=== PATIENT | female | born 1935 | race Caucasian/White ===

== ENCOUNTER 2021-10-29 06:17 | Inpatient (IN) | payer OTHER ==
[~2021-10-29] VITALS: Ht 167.6 cm; Wt 136.4 kg
[~2021-10-29 06:17] MED LIST: EUTHYROX75 MC1 PO; HYDCHL25 PO; LEVSOD75 PO; METFORMIN HCL500 M2 PO; SPIRONOLACTONE25 MG PO
[2021-10-29 06:41] LABS: BASOPHILS ABSOLUTE AUTO 0.03 K/mm3 (0.00-0.23); BASOPHILS PERCENT AUTO 0 % (0-2); EOSINOPHILS ABSOLUTE AUTO 0.02 K/mm3 (0.00-0.68); EOSINOPHILS PERCENT AUTO 0 % (0-6); Hematocrit 42.7 % (33.0-51.0); Hemoglobin 14.1 g/dL (11.5-16.0); IMMATURE GRAN ABSOLUTE AUTO 0.02 K/mm3 (0.00-0.10); IMMATURE GRAN PERCENT AUTO 0 % (0-1); LYMPHOCYTES ABSOLUTE AUTO 1.81 K/mm3 (0.84-5.20); LYMPHOCYTES PERCENT AUTO 23 % (21-46); MONOCYTES ABSOLUTE AUTO 0.52 K/mm3 (0.16-1.47); MONOCYTES PERCENT AUTO 7 % (4-13); Mean Corpuscular HGB 30.1 pg (26.0-34.0); Mean Corpuscular Volume 91 fL (80-100); Mean Platelet Volume 9.7 fL (9.1-12.4); NEUTROPHILS ABSOLUTE AUTO 5.42 K/mm3 (1.96-9.15); NEUTROPHILS PERCENT AUTO 69 % (41-73); Platelet Count 362 K/mm3 (150-400); RDW Coefficient Variation 13.6 % (11.7-14.2); RDW Standard Deviation 45.4 fL (35.1-46.3); Red Blood Cell Count 4.68 M/mm3 (3.80-5.20); White Blood Cell Count 7.82 K/mm3 (4.00-11.30)
[2021-10-29 07:08] LABS: Alanine Aminotransfer (ALT/SGP 54 U/L (12-78); Albumin, Blood 3.5 g/dL (3.4-5.0); Albumin/Globulin Ratio 0.9 (0.8-1.8); Alk Phos 104 U/L (50-136); Anion Gap 10 mmol/L (6-16); Aspartate Aminotrans (AST/SGOT 27 U/L (12-37); Bilirubin, Total 0.7 mg/dL (0.1-1.0); Blood Urea Nitrogen 30 mg/dL (8-24); Bun/Creatinine Ratio 32.5 (12.0-20.0); CO2, Blood 25 mmol/L (21-32); Chloride, Blood 102 mmol/L (98-108); Creatinine, Blood 0.92 mg/dL (0.40-1.00); Glomerular Filtration Rate 58 (60-); Glucose, Blood 161 mg/dL (70-99); Magnesium, Blood 1.9 mg/dL (1.6-2.4); Potassium, Blood 3.9 mmol/L (3.5-5.5); Sodium, Blood 137 mmol/L (136-145); Total Protein, Blood 7.5 g/dL (6.4-8.2); Troponin I <0.015 ng/mL (0.000-0.040)
[2021-10-29] MEDS ORDERED: BENAZEPRIL HCL40 M1 PO (07:11)
[2021-10-29 07:18] LABS: International Normalized Ratio 1.04; Prothrombin Time Results 10.9 Sec (9.7-11.5)
[2021-10-29 08:07] LABS: Influenza A, PCR NEGATIVE (NEGATIVE); Influenza B, PCR NEGATIVE (NEGATIVE); Resp Syncytial Virus, PCR NEGATIVE (NEGATIVE); SARS-Cov-2 (COVID-19) PCR, MMC NEGATIVE (NEGATIVE)
--- NOTE | 2021-10-29 12:30 | NUR ---
CARE ASSUMPTION/ARRIVAL TO PCU PATIENT ARRIVED TO PCU FROM ED CRYSTAL BOYD AT 1150. PATIENT TRANSFERED WITH A 1 ASSIT TO PCU BED. VSS. TELE AFIB 115. CARDIZEM DRIP AT 15. A/OX4. NO PAIN, CHEST PAIN. SOB WITH EXERTION. PATIENT ORIENTATED TO THE ROOM AND CALL LIGHT. CALL LIGHT WITHIN REACH AND BED IN LOWEST POSITION. WILL CONTINUE TO MONITOR AND PROVIDE CARE.
--- NOTE | 2021-10-29 18:20 | NUR ---
SHIFT SUMMARY PATIENT IS A/OX4. VSS. CARDIZEM GTT AT 15MLS/HR UNTIL HEART RATE MAINTAINED LESS THAN 110. TELE AFIB 125. NO ACUTE CHANGES. CALL LIGHT WITHIN REACH AND BED IN LOWEST POSITION. WILL CONTINUE TO MONITOR AND PROVIDE CARE UNTIL HAND OFF WITH NEXT SHIFT.
--- NOTE | 2021-10-29 19:48 | NUR ---
ASSUMED CARE PT IS ALERT AND ORIENTED X4. VITAL ARE STABLE AN IS ON ROOM AIR. PT DENIES CHEST PAIN OR SOB. CALLED TELE MONTOR TO DIYA R/R AND SHE IS CURRENTLY IN AFIB AND LOWER 100'S BUT NOT SUSTAINING. CALL LIGHT IS WITHIN REACH. WILL CONTINUE TO MONITOR.
--- NOTE | 2021-10-29 22:02 | NUR ---
CALLED DR MARTINEZ TO GET ORDER FOR MICONAZOLE POWDER. ORDER GIVEN TID.
--- NOTE | 2021-10-30 01:53 | NUR ---
TURNE OFF CARDIZEM GTT PT SUSTAINING IN THE HIGH 90'S TO LOW 100'S.
--- NOTE | 2021-10-30 06:15 | NUR ---
SHIFT SUMMARY PT IS ALERT AND ORIENTED. BP, SPO2, ARE STABLE, ON ROOM AIR. PT DENIES CHEST PAIN OR SOB. CARDIZEM GTT WAS TURNED OFF AT APPROX 01:50 DUE TO SUSTAINING BELOW 100. I CALLED DR MCDONALD REGARDING A PO MEDICATION FOR THE HEART RATE. METROPOLOL 25MG BID WAS ORDERED. THIS MORNING THE HEART RATE INCREASED AND SUSTAINING, WAS MEDICATED PER EMAR. PT HAS BEEN ABLE TO USE BSC WITH SBA ASSIST. SHE REPORTED BACK PAIN AND WANTED TO SIT IN CHAIR AND HAS BEEN IN CHAIR FOR A COUPLE OF HOURS AND TOLERATING WELL. CALL LIGHT IS WITHIN REACH.
--- NOTE | 2021-10-30 16:29 | NUR ---
Initial Assessment with [facility] Internet Project Manager 1. Who did you speak with? Spoke with patient 2. What is the patient's prior level of functions? Patient lives independently; uses a four wheeled walker for assistance. She has a strong support network; family lives on block away. 3. What is the patient's current living situation? Patient lives independently in a single story home. 4. Is the patient and/or family able to provide transportation to and from doctor's appointments and lease picker prescriptions? Patient is able to drive. 5. Does patient still drive? Yes 6. POA/PCP/NOK: PCP-Nghia Castañeda/Daughter Roslyn 7. ANTICIPATED DISCHARGE NEEDS/GOALS: -Return to residence: patient able to return to her residence (patient states her home is safe with running water, heat, electricity, and sewage). -DME: patient presently uses 4 wheeled walker (in good repair) -Daughter will transport patient to her residence 8. List barriers to discharge: No barriers on this date. 9. Discharge Plan: 10/31/21 10. PCP Follow up appointment: Will be scheduled within seven calendar days of discharge. 11. OTHER COMMENTS: None
--- NOTE | 2021-10-30 18:33 | NUR ---
SHIFT SUMMARY PT HAS HAD DIFFICULTY ACHIEVING AND MAINTAINING COMFORT. PT HAS SPENT SEVERAL HOURS IN THE BEDSIDE CHAIR AND SPENT THE REST OF THE TIME RESTING IN BED. A FOAM CUSHION WAS ADDED TO THE BED TO PROMOTE COMFORT. PT HAS HAD NO OTHER C/O. PT HEART RATE HAS AVERAGED <120 BPM.
[2021-10-31 05:17] LABS: BASOPHILS ABSOLUTE AUTO 0.02 K/mm3 (0.00-0.23); BASOPHILS PERCENT AUTO 0 % (0-2); EOSINOPHILS ABSOLUTE AUTO 0.03 K/mm3 (0.00-0.68); EOSINOPHILS PERCENT AUTO 0 % (0-6); Hematocrit 37.2 % (33.0-51.0); Hemoglobin 12.3 g/dL (11.5-16.0); IMMATURE GRAN ABSOLUTE AUTO 0.02 K/mm3 (0.00-0.10); IMMATURE GRAN PERCENT AUTO 0 % (0-1); LYMPHOCYTES ABSOLUTE AUTO 1.42 K/mm3 (0.84-5.20); LYMPHOCYTES PERCENT AUTO 18 % (21-46); MONOCYTES ABSOLUTE AUTO 0.55 K/mm3 (0.16-1.47); MONOCYTES PERCENT AUTO 7 % (4-13); Mean Corpuscular HGB 29.9 pg (26.0-34.0); Mean Corpuscular HGB Conc 33.1 g/dL (31.5-36.5); Mean Corpuscular Volume 91 fL (80-100); Mean Platelet Volume 9.9 fL (9.1-12.4); NEUTROPHILS ABSOLUTE AUTO 5.88 K/mm3 (1.96-9.15); NEUTROPHILS PERCENT AUTO 74 % (41-73); Platelet Count 296 K/mm3 (150-400); RDW Coefficient Variation 13.7 % (11.7-14.2); RDW Standard Deviation 44.6 fL (35.1-46.3); Red Blood Cell Count 4.11 M/mm3 (3.80-5.20); White Blood Cell Count 7.92 K/mm3 (4.00-11.30)
[2021-10-31 06:10] LABS: Anion Gap 9 mmol/L (6-16); Blood Urea Nitrogen 23 mg/dL (8-24); Bun/Creatinine Ratio 27.5 (12.0-20.0); CO2, Blood 24 mmol/L (21-32); Calcium, Blood 8.7 mg/dL (8.5-10.1); Chloride, Blood 101 mmol/L (98-108); Creatinine, Blood 0.84 mg/dL (0.40-1.00); Glomerular Filtration Rate >60 (60-); Glucose, Blood 135 mg/dL (70-99); Phosphorus, Blood 3.2 mg/dL (2.5-4.9); Potassium, Blood 4.1 mmol/L (3.5-5.5); Sodium, Blood 134 mmol/L (136-145)
--- NOTE | 2021-10-31 06:24 | NUR ---
SHIFT SUMMARY ASSUMED CARE OF PT AT 1900. PT IS A/OX4 HEART SOUNDS IRREGULAR, TELE SHOWED P WAS IN AFIB T/O THE NIGHT. PT RATE TOUCHED INTO THE 160S WITH MOVEMENT AND MAINTAINED IN THE 140S FOR OVER 10 MIN. HOSPITALIST WAS NOTIFED AND ORDERED ONE TIME DOSE OF METOPROLOL WITH NO EFFECTS. 2ND HOSPITALIST WAS CALLED AND ORDERED CARDIZEM AND DIGOXIN. PT RESPONDED WELL AND RATE HAS DECREASED INTO THE 110-120 RANGE. LUNG SOUNDS CLEAR. PT WAS A 1P ASSIST TO BSC WITH WALKER. WHILE GIVING PT AN IV, PT MADE COMMENTS THAT WERE VERYING DEPRESSING. PT STATES THAT THEY ARE A DNR AND THAT SHE WISHED THAT NOTHING BE DONE. PT STATE THAT SHE DOES NOT WANT TO BE A BURDEN TO HER FAMILY AND WISHED THAT SHE WOULD . PT WAS NOT ABLE TO SLEEP WELL THIS NIGHT AND SLEPT IN THE RECLINER INSTEAD. CALL LIGHT IN REACH, BED IN LOWEST POSTION.
--- NOTE | 2021-10-31 17:37 | NUR ---
SHIFT SUMMARY PT HAS BEEN RESTLESS TODAY. PT HAS FOUND IT DIFFICULT TO RELAX IN ROOM. PT WALKED AROUND THE UNIT THIS EVENING, GAIT BELT AND WALKER, WITH A STAFF MEMBER AND EXPRESSED RELIEF AFTER. PT IS HOPEFUL FOR DISCHARGE, BUT STATES A WILLINGNESS TO CONTINUE STAY AND FOLLOW PLAN OF CARE. PT WAS WITHDRAWN, BUT WOULD CONVERSE APPROPRIATELY WITH STAFF. VSS. HEART RATE AVERAGED 110-120 AT REST WITH BRIEF JUMPS TO 150 WITH ACTIVITY. NO ACUTE CHANGES TO CONDITION.
--- NOTE | 2021-11-01 05:25 | NUR ---
PEEL OVEN TENDER SUMMARY PT IS AXO X4 THIS SHIFT. TELE HAS SHOWN AFIB 90-135 THIS SHIFT. PT GIVEN PRN DOSE OF LOPRESSOR THIS SHIFT FOR A HR OF >120. BP WNL AND STABLE THIS SHIFT. PT DENYING ANY CP OR PRESSURE THIS SHIFT. O2 SATS >92% ON RM AIR. PT SLEPT COMFORTABLY IN THE RECLINER FORMOST OF THE SHIFT. WILL REPORT TO ONCOMING RN.
--- NOTE | 2021-11-01 18:18 | NUR ---
SHIFT SUMMARY; ASSUMED CARE AT 0700, REPORT FROM CHAN TORO. SBA IN ROOM TO BEDSIDE COMMODE. UP IN RECLINER FOR DAY, REPOSITIONS SELF NEEDED. AFIB 100-110'S UNTIL AFTERNOON INCREASED TO 120-130. MEDICATED WITH PRN LOPRESSOR PER EMAR FOR INCREASED HR. A/A/OX4, DENIES CHEST PAIN OR SOB. WILL CONTINUE TO MONITOR AND TREAT UNTIL CHANGE OF SHIFT.
--- NOTE | 2021-11-01 19:31 | NUR ---
caRE ASSUMPTION PT RESTING COMFORTABLY IN RECLINER W NO C/O PAIN OR NAUSEA. HR AND BP STABLE AT THIS TIME. VSS
[2021-11-02 05:04] LABS: BASOPHILS ABSOLUTE AUTO 0.03 K/mm3 (0.00-0.23); BASOPHILS PERCENT AUTO 1 % (0-2); EOSINOPHILS ABSOLUTE AUTO 0.08 K/mm3 (0.00-0.68); EOSINOPHILS PERCENT AUTO 1 % (0-6); Hematocrit 37.7 % (33.0-51.0); Hemoglobin 12.6 g/dL (11.5-16.0); IMMATURE GRAN ABSOLUTE AUTO 0.02 K/mm3 (0.00-0.10); IMMATURE GRAN PERCENT AUTO 0 % (0-1); LYMPHOCYTES ABSOLUTE AUTO 1.81 K/mm3 (0.84-5.20); LYMPHOCYTES PERCENT AUTO 28 % (21-46); MONOCYTES ABSOLUTE AUTO 0.55 K/mm3 (0.16-1.47); MONOCYTES PERCENT AUTO 9 % (4-13); Mean Corpuscular HGB 29.7 pg (26.0-34.0); Mean Corpuscular HGB Conc 33.4 g/dL (31.5-36.5); Mean Corpuscular Volume 89 fL (80-100); Mean Platelet Volume 10.3 fL (9.1-12.4); NEUTROPHILS ABSOLUTE AUTO 3.94 K/mm3 (1.96-9.15); NEUTROPHILS PERCENT AUTO 61 % (41-73); Platelet Count 337 K/mm3 (150-400); RDW Coefficient Variation 13.8 % (11.7-14.2); RDW Standard Deviation 44.6 fL (35.1-46.3); Red Blood Cell Count 4.24 M/mm3 (3.80-5.20); White Blood Cell Count 6.43 K/mm3 (4.00-11.30)
[2021-11-02 05:28] LABS: Anion Gap 9 mmol/L (6-16); Blood Urea Nitrogen 23 mg/dL (8-24); Bun/Creatinine Ratio 33.9 (12.0-20.0); CO2, Blood 24 mmol/L (21-32); Calcium, Blood 8.8 mg/dL (8.5-10.1); Chloride, Blood 101 mmol/L (98-108); Creatinine, Blood 0.68 mg/dL (0.40-1.00); Glomerular Filtration Rate >60 (60-); Glucose, Blood 129 mg/dL (70-99); Phosphorus, Blood 3.4 mg/dL (2.5-4.9); Potassium, Blood 4.4 mmol/L (3.5-5.5); Sodium, Blood 134 mmol/L (136-145)
--- NOTE | 2021-11-02 06:02 | NUR ---
RAILWAY SIGNAL OPERATOR SUMMARY PT IS AXO X4 THIS SHIFT. PT DID REQUIRE ONE DOSE OF PRN LOPRESSOR FOR HR >130. BP WNL AND STABLE THIS SHIFT. O2 SATS >92% ON RM AIR. PT SLEPT FOR MOST OF THE NIGHT IN THE RECLINER. WILL REPORT TO ONCOMING RN.
[2021-11-02] MEDS ORDERED: ELIQUIS5 M2 PO (13:59)
[2021-11-02] MEDS ORDERED: FAMO20 PO (14:00)
[2021-11-02] MEDS ORDERED: METO50ER PO (14:02)
--- NOTE | 2021-11-03 08:19 | NUR ---
Per Dr. Dove discharge appropriate (discharged on 11/02/21). Patient does not oppose to discharge Patient's family provided transportation to residence. DME: patient has a four wheeled walker. Patient will be contacted by transition of care to schedule hospital discharge PCPC follow up. Patient states she has a good support network of family and friends. No barriers to discharge at this time.
== END 2021-11-02 15:09 | disposition home or self-care (01) | DRG 309 ==
LOC: ER 06:17 → PCU 09:00
PROVIDERS: Emergency Medicine; Internal Medicine; ADMIT Family Medicine
DX: I48.91 Unspecified atrial fibrillation (principal); Z68.42 Body mass index [BMI] 45.0-49.9, adult; I10 Essential (primary) hypertension; E78.5 Hyperlipidemia, unspecified; Z66 Do not resuscitate; E66.01 Morbid (severe) obesity due to excess calories; E03.9 Hypothyroidism, unspecified; Z20.822 Contact with and (suspected) exposure to COVID-19; E11.9 Type 2 diabetes mellitus without complications; Z23 Encounter for immunization; Z88.8 Allergy status to other drugs, medicaments and biological substances; Z91.013 Allergy to seafood; Z79.84 Long term (current) use of oral hypoglycemic drugs; Z79.899 Other long term (current) drug therapy
CPT/HCPCS: 0241U; 36415; 71045; 80048; 80053; 83735; 83880; 84100; 84443; 84484; 85025; 85610; 85730; 90686; 93005; 93010; 96365; 96366; 96375; 99285-25; A9270; C1751; J0282; J1160; J7060

== ENCOUNTER 2021-11-24 13:23 | Emergency (ER) | payer OTHER ==
[~2021-11-24] VITALS: Ht 167.6 cm; Wt 142.9 kg
[~2021-11-24 13:23] MED LIST changes: +BENAZEPRIL HCL40 M1 PO; +ELIQUIS5 M2 PO; +FAMO20 PO; +METO50ER PO
[2021-11-24 14:23] LABS: BASOPHILS ABSOLUTE AUTO 0.03 K/mm3 (0.00-0.23); BASOPHILS PERCENT AUTO 1 % (0-2); EOSINOPHILS ABSOLUTE AUTO 0.02 K/mm3 (0.00-0.68); EOSINOPHILS PERCENT AUTO 0 % (0-6); Hematocrit 37.6 % (33.0-51.0); Hemoglobin 12.3 g/dL (11.5-16.0); IMMATURE GRAN ABSOLUTE AUTO 0.01 K/mm3 (0.00-0.10); IMMATURE GRAN PERCENT AUTO 0 % (0-1); LYMPHOCYTES ABSOLUTE AUTO 1.25 K/mm3 (0.84-5.20); LYMPHOCYTES PERCENT AUTO 20 % (21-46); MONOCYTES ABSOLUTE AUTO 0.48 K/mm3 (0.16-1.47); MONOCYTES PERCENT AUTO 8 % (4-13); Mean Corpuscular HGB 30.1 pg (26.0-34.0); Mean Corpuscular HGB Conc 32.7 g/dL (31.5-36.5); Mean Corpuscular Volume 92 fL (80-100); Mean Platelet Volume 10.1 fL (9.1-12.4); NEUTROPHILS ABSOLUTE AUTO 4.51 K/mm3 (1.96-9.15); NEUTROPHILS PERCENT AUTO 72 % (41-73); Platelet Count 307 K/mm3 (150-400); RDW Coefficient Variation 14.3 % (11.7-14.2); RDW Standard Deviation 48.4 fL (35.1-46.3); Red Blood Cell Count 4.09 M/mm3 (3.80-5.20)
[2021-11-24 14:54] LABS: Alanine Aminotransfer (ALT/SGP 84 U/L (12-78); Albumin, Blood 3.2 g/dL (3.4-5.0); Alk Phos 138 U/L (50-136); Anion Gap 10 mmol/L (6-16); Aspartate Aminotrans (AST/SGOT 39 U/L (12-37); Bilirubin, Total 0.9 mg/dL (0.1-1.0); Blood Urea Nitrogen 42 mg/dL (8-24); Bun/Creatinine Ratio 35.3 (12.0-20.0); CO2, Blood 21 mmol/L (21-32); Calcium, Blood 8.8 mg/dL (8.5-10.1); Chloride, Blood 103 mmol/L (98-108); Creatinine, Blood 1.19 mg/dL (0.40-1.00); Globulin, Blood 3.3 g/dL (2.2-4.0); Glomerular Filtration Rate 43 (60-); Glucose, Blood 106 mg/dL (70-99); Potassium, Blood 4.1 mmol/L (3.5-5.5); Sodium, Blood 134 mmol/L (136-145); Total Protein, Blood 6.5 g/dL (6.4-8.2); Troponin I <0.015 ng/mL (0.000-0.040)
[2021-11-24] MEDS ORDERED: Bumetanide2 MG PO (17:19)
[2021-11-24 17:42] LABS: Free Thyroxine 1.31 ng/dL (0.70-1.60)
[2021-11-24 17:44] LABS: Thyroid Stimulating Hormone 3.12 uIU/mL (0.360-4.800)
== END 2021-11-24 18:28 | disposition home or self-care (01) ==
LOC: ER 13:23
PROVIDERS: Emergency Medicine; Physician Assistant
DX: N17.9 Acute kidney failure, unspecified (principal); I10 Essential (primary) hypertension; E11.9 Type 2 diabetes mellitus without complications; I48.91 Unspecified atrial fibrillation; E03.9 Hypothyroidism, unspecified; Z91.013 Allergy to seafood; Z88.8 Allergy status to other drugs, medicaments and biological substances; Z79.899 Other long term (current) drug therapy; Z79.84 Long term (current) use of oral hypoglycemic drugs; Z79.01 Long term (current) use of anticoagulants
CPT/HCPCS: 36415; 71046; 80053; 83690; 83880; 84439; 84443; 84484; 85025; 93005; 93010; 96374; 99284-25

== ENCOUNTER 2022-02-10 23:36 | Inpatient (IN) | payer OTHER ==
[~2022-02-10] VITALS: Ht 167.6 cm; Wt 125.5 kg
[~2022-02-10 23:36] MED LIST changes: +Bumetanide2 MG PO
[2022-02-11 00:08] LABS: BASOPHILS ABSOLUTE AUTO 0.02 K/mm3 (0.00-0.23); BASOPHILS PERCENT AUTO 0 % (0-2); EOSINOPHILS ABSOLUTE AUTO 0.04 K/mm3 (0.00-0.68); EOSINOPHILS PERCENT AUTO 1 % (0-6); Hematocrit 38.5 % (33.0-51.0); Hemoglobin 12.3 g/dL (11.5-16.0); IMMATURE GRAN ABSOLUTE AUTO 0.03 K/mm3 (0.00-0.10); IMMATURE GRAN PERCENT AUTO 1 % (0-1); LYMPHOCYTES ABSOLUTE AUTO 0.94 K/mm3 (0.84-5.20); LYMPHOCYTES PERCENT AUTO 18 % (21-46); MONOCYTES ABSOLUTE AUTO 0.38 K/mm3 (0.16-1.47); MONOCYTES PERCENT AUTO 7 % (4-13); Mean Corpuscular HGB 28.1 pg (26.0-34.0); Mean Corpuscular HGB Conc 31.9 g/dL (31.5-36.5); Mean Corpuscular Volume 88 fL (80-100); Mean Platelet Volume 9.3 fL (9.1-12.4); NEUTROPHILS ABSOLUTE AUTO 3.79 K/mm3 (1.96-9.15); NEUTROPHILS PERCENT AUTO 73 % (41-73); Platelet Count 300 K/mm3 (150-400); RDW Coefficient Variation 17.1 % (11.7-14.2); RDW Standard Deviation 53.6 fL (35.1-46.3); Red Blood Cell Count 4.38 M/mm3 (3.80-5.20)
[2022-02-11 00:36] LABS: Prothrombin Time Results >90.0 Sec (9.7-11.5)
[2022-02-11 00:37] LABS: International Normalized Ratio >10.00
[2022-02-11 04:05] LABS: BASOPHILS ABSOLUTE AUTO 0.01 K/mm3 (0.00-0.23); BASOPHILS PERCENT AUTO 0 % (0-2); EOSINOPHILS ABSOLUTE AUTO 0.06 K/mm3 (0.00-0.68); EOSINOPHILS PERCENT AUTO 2 % (0-6); Hematocrit 35.5 % (33.0-51.0); Hemoglobin 11.3 g/dL (11.5-16.0); IMMATURE GRAN ABSOLUTE AUTO 0.02 K/mm3 (0.00-0.10); IMMATURE GRAN PERCENT AUTO 1 % (0-1); LYMPHOCYTES PERCENT AUTO 36 % (21-46); MONOCYTES ABSOLUTE AUTO 0.13 K/mm3 (0.16-1.47); MONOCYTES PERCENT AUTO 5 % (4-13); Mean Corpuscular HGB Conc 31.8 g/dL (31.5-36.5); Mean Corpuscular Volume 88 fL (80-100); Mean Platelet Volume 9.8 fL (9.1-12.4); NEUTROPHILS ABSOLUTE AUTO 1.41 K/mm3 (1.96-9.15); NEUTROPHILS PERCENT AUTO 56 % (41-73); Platelet Count 252 K/mm3 (150-400); RDW Coefficient Variation 16.8 % (11.7-14.2); RDW Standard Deviation 53.7 fL (35.1-46.3); Red Blood Cell Count 4.03 M/mm3 (3.80-5.20); White Blood Cell Count 2.53 K/mm3 (4.00-11.30)
[2022-02-11 04:23] LABS: Albumin, Blood 2.9 g/dL (3.4-5.0); Albumin/Globulin Ratio 0.7 (0.8-1.8); Bilirubin, Total 0.9 mg/dL (0.1-1.0); Bun/Creatinine Ratio 31.9 (12.0-20.0); Calcium, Blood 9.2 mg/dL (8.5-10.1); Creatinine, Blood 3.07 mg/dL (0.40-1.00); Potassium, Blood 4.2 mmol/L (3.5-5.5); Total Protein, Blood 6.9 g/dL (6.4-8.2)
[2022-02-11 04:45] LABS: International Normalized Ratio 3.59
[2022-02-11 04:50] LABS: Prothrombin Time Results 34.7 Sec (9.7-11.5)
--- NOTE | 2022-02-11 07:14 | NUR ---
SHIFT SUMMARY: RECEIVED REPORT FROM RODNEY GALLOWAY RN. PATIENT TRANSPORTED BY WHEELCHAIR AND [id number] TO PCU BED. A&O X4, SON AT BEDSIDE. PATIENT HAS EXTENSIVE WOUNDS, BRUISING, AND WEEPING CELLULITIS. PHOTOS IN CHART. HR >110S, OTHER VSS ON RA. NS RUNNING AT 75 MLS/HR. WOUND CARE PROVIDED, MEPIPLEX ON COCCYX, HEEL PROTECTORS AND XAVIER BOOTS ON LEGS. THE BRUISING ON PATIENT'S BACK AND ARMS ARE INCONSISTENT WITH A FORWARD FALL. PATIENT STATED "THE NURSE DOWNSTAIRS WAS VERY CONCERNED ABOUT MY BRUISING. I GUESS SHE'S NEVER SEEN AN 86 YEAR OLD. I THOUGHT THIS WAS JUST PART OF AGING. I AM VERY RESPECTED AND WELL TAKEN CARE OF. THOUGH I SUPPOSE YOU HEAR THAT ALL THE TIME TOO." DISCUSSED WITH LASER OPERATOR AND DIRECTED TO PASS ON TO DAY SHIFT. WILL FOLLOW-UP IF THIS RN NEEDS TO REPORT OR IF THAT CAN BE PASSED ON TO DAY SHIFT. REPORT GIVEN TO TUTU PEDROZA RN.
[2022-02-11 08:39] LABS: Source, Urine Clean Catch
[2022-02-11 08:50] LABS: Bilirubin, Urine Neg (Neg); Blood, Urine Neg (Neg); Glucose Qualitative, Urine Neg (Neg); Ketones, Urine Neg (Neg); Leukocyte Esterase, Urine Neg (Neg); Nitrite, Urine Neg (Neg); Protein, Urine Neg (Neg); Urobilinogen, Urine NORM (Normal)
[2022-02-11 08:58] LABS: Appearance, Urine Clear (Clear); Color, Urine Yellow (P-Yellow)
[2022-02-11 13:22] LABS: Hematocrit 36.8 % (33.0-51.0); Hemoglobin 11.9 g/dL (11.5-16.0)
[2022-02-11 17:10] LABS: Albumin, Blood 2.9 g/dL (3.4-5.0); Anion Gap 9 mmol/L (6-16); Blood Urea Nitrogen 96 mg/dL (8-24); Bun/Creatinine Ratio 34.3 (12.0-20.0); CO2, Blood 24 mmol/L (21-32); Calcium, Blood 8.8 mg/dL (8.5-10.1); Chloride, Blood 101 mmol/L (98-108); Glomerular Filtration Rate 16 (60-); Glucose, Blood 133 mg/dL (70-99); Magnesium, Blood 2.1 mg/dL (1.6-2.4); Phosphorus, Blood 4.4 mg/dL (2.5-4.9); Potassium, Blood 4.2 mmol/L (3.5-5.5); Sodium, Blood 134 mmol/L (136-145)
--- NOTE | 2022-02-11 17:44 | NUR ---
SHIFT SUMMARY Pt A&OX3; forgetful at times. Pt resting in bed during shift, in chair for lunch and up to bsc several time t/o shift with 1 person assist. Pt denies pain, chest pain, nasuea, sob, dizziness and numb/tinlging. Spo2 >90% on RA t/o shift. Per tele hr afib 120-[address] Sanderson, new orders for digoxin, placed orders for iv fluids and PO Amiodarone. Pt bp dropped this am, trending up. Bruising and wound noted t/o; redness to rle, weeping noted. Pt had bm during shift. Pressure device still in place in left nares, no additional bleeding noted. Dr Tariq consulted this afternoon, in at bedside this evening, new order enetered. Other VSS. no other acute changes noted. Will continue to monitor until report given to oncoming RN.
[2022-02-11 21:40] LABS: Hematocrit 41.5 % (33.0-51.0); Hemoglobin 12.8 g/dL (11.5-16.0)
[2022-02-12 04:31] LABS: BASOPHILS ABSOLUTE AUTO 0.03 K/mm3 (0.00-0.23); BASOPHILS PERCENT AUTO 1 % (0-2); EOSINOPHILS ABSOLUTE AUTO 0.04 K/mm3 (0.00-0.68); EOSINOPHILS PERCENT AUTO 1 % (0-6); Hemoglobin 11.5 g/dL (11.5-16.0); IMMATURE GRAN ABSOLUTE AUTO 0.04 K/mm3 (0.00-0.10); IMMATURE GRAN PERCENT AUTO 1 % (0-1); LYMPHOCYTES ABSOLUTE AUTO 0.91 K/mm3 (0.84-5.20); LYMPHOCYTES PERCENT AUTO 17 % (21-46); MONOCYTES ABSOLUTE AUTO 0.37 K/mm3 (0.16-1.47); MONOCYTES PERCENT AUTO 7 % (4-13); Mean Corpuscular HGB 28.3 pg (26.0-34.0); Mean Corpuscular HGB Conc 31.9 g/dL (31.5-36.5); Mean Corpuscular Volume 89 fL (80-100); Mean Platelet Volume 9.6 fL (9.1-12.4); NEUTROPHILS ABSOLUTE AUTO 3.97 K/mm3 (1.96-9.15); NEUTROPHILS PERCENT AUTO 74 % (41-73); Platelet Count 255 K/mm3 (150-400); RDW Coefficient Variation 16.9 % (11.7-14.2); RDW Standard Deviation 53.4 fL (35.1-46.3); Red Blood Cell Count 4.06 M/mm3 (3.80-5.20); White Blood Cell Count 5.36 K/mm3 (4.00-11.30)
--- NOTE | 2022-02-12 04:42 | NUR ---
PATIENT REMAINS IN BED NO DISTRESS NOTED. DENIES PAIN ON ASSESSMENT. BRUISING NOTED THROUGHOUT BODY IN SAME STAGES NO BLANCHING WITH LIGHT TOUCH. PATIENT STATE ON ASSESSMENT THAT SHE FELL AT HOME. LUNGS SOUND CLEAR BILATERALLY AND BOWEL SOUNDS PATENT. PATIENT UP AND FROM COMMODE WITH ONE ASSIST SAFETY MAINTAINED. CALL LIGHT WITHIN REACH. PATIENT NOTED WITH PRESSURE AREA TO SACRUM DRSG ION PLACED. ULCER TO RIGHT HEEL HEEL PROTECTED IN PLACED. CALL PLACED FOR JACOB ORDER GIVEN AND IN PLACED. CLEAR URINE NOTED.
[2022-02-12 04:45] LABS: International Normalized Ratio 1.46
[2022-02-12 05:09] LABS: Alanine Aminotransfer (ALT/SGP 30 U/L (12-78); Albumin, Blood 2.8 g/dL (3.4-5.0); Albumin/Globulin Ratio 0.7 (0.8-1.8); Alk Phos 127 U/L (50-136); Anion Gap 14 mmol/L (6-16); Aspartate Aminotrans (AST/SGOT 22 U/L (12-37); Bilirubin, Direct 0.6 mg/dL (0.0-0.3); Bilirubin, Indirect 0.7 mg/dL (0.1-0.7); Bilirubin, Total 1.3 mg/dL (0.1-1.0); Blood Urea Nitrogen 86 mg/dL (8-24); Bun/Creatinine Ratio 36.8 (12.0-20.0); CO2, Blood 24 mmol/L (21-32); CPK Creatine Kinase 44 U/L (26-193); Calcium, Blood 9.4 mg/dL (8.5-10.1); Chloride, Blood 98 mmol/L (98-108); Creatinine, Blood 2.34 mg/dL (0.40-1.00); Digoxin (Lanoxin) 2.29 ug/mL (0.80-2.00); Globulin, Blood 3.8 g/dL (2.2-4.0); Glomerular Filtration Rate 20 (60-); Glucose, Blood 110 mg/dL (70-99); Magnesium, Blood 2.1 mg/dL (1.6-2.4); Phosphorus, Blood 3.5 mg/dL (2.5-4.9); Potassium, Blood 3.7 mmol/L (3.5-5.5); Sodium, Blood 136 mmol/L (136-145); Total Protein, Blood 6.6 g/dL (6.4-8.2); Uric Acid, Blood 14.6 mg/dL (2.6-6.0)
[2022-02-12 12:04] LABS: Hematocrit 39.1 % (33.0-51.0); Hemoglobin 12.3 g/dL (11.5-16.0)
--- NOTE | 2022-02-12 16:53 | NUR ---
SHIFT SUMMARY PT A&Ox3; FORGETFUL AT TIMES. PT UP IN CHAIR FOR MAJORITY OF SHIFT. UP IN ROOM WITH 1 PERSON ASSIST. PT REPORTS CHRONIC BACK PAIN, HEAT PAD PROVIDED, PT REPROTS RELEIFE. PT DENIES CHEST PAIN, SOB, NASUEA AND DIZZINESS. SPO2 >90% ON RA, LS DIM T/O. PT AFIB T/O SHIFT 90-140'S; DR LEE AT BEDSIDE THIS AFTERNOON; CALLED TO CLARIFY ORDERS TO GIVE AN ADDITION 100 MG OF METOPROLOL; NEW ORDERS TO GIVE FULL DOSE THIS AFTERNOON. BP SOFT THIS AFTERNOON BUT STABLE. DRESSING TO LEG CHANGED THIS EVENING. OTHER VSS. NO OTHER ACUTE CHANGES NOTED. WILL CONTINUE TO MONITOR UNITL REPORT GIVEN TO ONCOMING RN.
--- NOTE | 2022-02-12 17:15 | NUR ---
RECEIVED RETURN CALL FROM [facility], SPOKE WITH FOX AND PROVIDED INTAKE INFORMATION.
--- NOTE | 2022-02-12 22:10 | NUR ---
PATIENT REMAINS IN BED WITH SON AT BEDSIDE. ON ASSESSEMENT PATIENT NOTED ALERT AND ORIENTED TIMES 4, CAN MAKE NEEDS KNOWN. LUNGS SOUNDS ASSESSED AND NOTED CLEAR. BOWEL SOUNDS PATENT.BRUISING TO EXTRIMITIES REMAINS. PATIENT DENIES PAIN ON ASSESSEMENT. RIGHT LEG NOTED WITH CELLULITIS AND LEFT HEEL PRESSURE ULCER, SACRUM PRESSURE NOTED. DRSG IN PLACED. PATIENT ENCOURAGE TO TURN AND REPOSITION Q 2 HOURS TOLERATED. CALL LIGHT WITHIN REACH. BED IN LOWEST POSITION. SAFETY MAINTAINED.
[2022-02-13 04:24] LABS: BASOPHILS ABSOLUTE AUTO 0.03 K/mm3 (0.00-0.23); BASOPHILS PERCENT AUTO 1 % (0-2); EOSINOPHILS ABSOLUTE AUTO 0.08 K/mm3 (0.00-0.68); EOSINOPHILS PERCENT AUTO 1 % (0-6); Hematocrit 35.3 % (33.0-51.0); Hemoglobin 11.3 g/dL (11.5-16.0); IMMATURE GRAN ABSOLUTE AUTO 0.03 K/mm3 (0.00-0.10); IMMATURE GRAN PERCENT AUTO 1 % (0-1); LYMPHOCYTES ABSOLUTE AUTO 1.01 K/mm3 (0.84-5.20); LYMPHOCYTES PERCENT AUTO 18 % (21-46); MONOCYTES ABSOLUTE AUTO 0.48 K/mm3 (0.16-1.47); MONOCYTES PERCENT AUTO 9 % (4-13); Mean Corpuscular HGB 27.8 pg (26.0-34.0); Mean Corpuscular Volume 87 fL (80-100); Mean Platelet Volume 9.3 fL (9.1-12.4); NEUTROPHILS ABSOLUTE AUTO 3.91 K/mm3 (1.96-9.15); NEUTROPHILS PERCENT AUTO 71 % (41-73); Platelet Count 258 K/mm3 (150-400); RDW Coefficient Variation 16.8 % (11.7-14.2); RDW Standard Deviation 52.4 fL (35.1-46.3); Red Blood Cell Count 4.06 M/mm3 (3.80-5.20); White Blood Cell Count 5.54 K/mm3 (4.00-11.30)
[2022-02-13 04:44] LABS: International Normalized Ratio 2.11; Prothrombin Time Results 21.1 Sec (9.7-11.5)
[2022-02-13 04:45] LABS: Albumin, Blood 2.7 g/dL (3.4-5.0); Albumin/Globulin Ratio 0.8 (0.8-1.8); Bilirubin, Total 1.2 mg/dL (0.1-1.0); Calcium, Blood 9.2 mg/dL (8.5-10.1); Creatinine, Blood 1.78 mg/dL (0.40-1.00); Globulin, Blood 3.6 g/dL (2.2-4.0); Phosphorus, Blood 2.7 mg/dL (2.5-4.9); Potassium, Blood 3.5 mmol/L (3.5-5.5); Total Protein, Blood 6.3 g/dL (6.4-8.2)
--- NOTE | 2022-02-13 12:48 | NUR ---
TOMMY HUANG AND CARRILLO HARVEY FROM [facility] AT BEDSIDE THIS AFTERNOON FOR PATIENT INTERVIEW, AND ARE REQUESTING COPIES OF PHOTOS FROM ADMISSION. PATEINT NOTIFIED OF REQUEST AND PATIENT SIGNED RELEASE OF RECORD; COPIES OF ADMISSION PHOTOS RELEASED TO [facility].
--- NOTE | 2022-02-13 18:05 | NUR ---
SHIFT SUMMARY PT A&Ox3; FORGETFUL AT TIMES. PT RESTING IN BED DURING SHIFT. UP TO CHAIR THIS AM WITH 1 PERSON ASSIST. PT DENIES PAIN, CHEST PAIN, SOB, AND DIZZINESS T/O SHIFT. PT RECEIVING PO METOPROLO AND IV BUMEX DURING SHIFT. RHINO ROCKET REMOVED THIS AM BY DR DONALDSON; SILVER NITRATE USED TO SLOW SLIGHT BLEEDING IN LEFT NARES; NO ADDITIONAL BLEEDING NOTED T/O SHIFT. PT NOTED AN "TOO FULL" "UPSET" STOMACH THIS AM AFTER BREAKFAST, NO FURTHER COMPLAINTS FOR REMAINDER OF SHIFT. JACOB IN PLACE AND DRAINING. BP SOFT, BUT STABLE. OTHER VSS. NO OTHER ACUTE CHANGES NOTED. WILL CONTINUE TO MONITOR UNITL REPORT GIVEN TO ONCOMING RN.
--- NOTE | 2022-02-13 21:34 | NUR ---
PATIENT REMAINS IN BED WITH SON AT BEDSIDE DURING CHANGE OF SHIFT. PATIENT ASSESSED AND NOTED ALERT AND ORIENTED TIMES 4. ABLE TO MAKE NEEDS KNOWN BY ALL. LUNGS SOUNDS ASSESSED AND NOTED CLEAR BILATERALLY. BOWEL SOUNDS PATENT. PATIENT NOTED WITH LOWER EXTREMITIES EDEMA. WOUND TO RIGHT HEEL CLEANSE AND CHANGED PER MD ORDERS. NO DRAINAGE OR ODOR NOTED FROM SITE. PATIENT REPOSITION AND BILATERAL LEGS ELEVATED ON PILLOW. CALL LIGHT WITHIN REACH. BED IN LOWEST POSITION FOR SAFETY. ONGOING ROUNDINGS ON PATIENT AND FREQUENT TURNS NEEDED.
[2022-02-14 04:19] LABS: BASOPHILS ABSOLUTE AUTO 0.04 K/mm3 (0.00-0.23); BASOPHILS PERCENT AUTO 1 % (0-2); EOSINOPHILS PERCENT AUTO 2 % (0-6); Hematocrit 36.5 % (33.0-51.0); Hemoglobin 11.7 g/dL (11.5-16.0); IMMATURE GRAN ABSOLUTE AUTO 0.06 K/mm3 (0.00-0.10); IMMATURE GRAN PERCENT AUTO 1 % (0-1); LYMPHOCYTES ABSOLUTE AUTO 1.06 K/mm3 (0.84-5.20); LYMPHOCYTES PERCENT AUTO 18 % (21-46); MONOCYTES ABSOLUTE AUTO 0.54 K/mm3 (0.16-1.47); MONOCYTES PERCENT AUTO 9 % (4-13); Mean Corpuscular HGB 28.3 pg (26.0-34.0); Mean Corpuscular HGB Conc 32.1 g/dL (31.5-36.5); Mean Corpuscular Volume 88 fL (80-100); Mean Platelet Volume 9.2 fL (9.1-12.4); NEUTROPHILS ABSOLUTE AUTO 4.11 K/mm3 (1.96-9.15); NEUTROPHILS PERCENT AUTO 70 % (41-73); Platelet Count 260 K/mm3 (150-400); RDW Coefficient Variation 17.3 % (11.7-14.2); Red Blood Cell Count 4.13 M/mm3 (3.80-5.20); White Blood Cell Count 5.91 K/mm3 (4.00-11.30)
[2022-02-14 04:40] LABS: International Normalized Ratio 2.4; Prothrombin Time Results 23.8 Sec (9.7-11.5)
[2022-02-14 04:43] LABS: Albumin, Blood 2.7 g/dL (3.4-5.0); Albumin/Globulin Ratio 0.7 (0.8-1.8); Bilirubin, Total 1.1 mg/dL (0.1-1.0); Creatinine, Blood 1.51 mg/dL (0.40-1.00); Globulin, Blood 3.7 g/dL (2.2-4.0); Magnesium, Blood 1.9 mg/dL (1.6-2.4); Phosphorus, Blood 2.7 mg/dL (2.5-4.9); Potassium, Blood 3.3 mmol/L (3.5-5.5); Total Protein, Blood 6.4 g/dL (6.4-8.2)
[2022-02-14] MEDS ORDERED: CEPH500 PO (10:10)
[2022-02-14] MEDS ORDERED: NYSTATIN15 GM TOP (10:11)
[2022-02-14] MEDS ORDERED: KLOR-CON 1010 ME6 PO (10:13)
--- NOTE | 2022-02-14 11:55 | NUR ---
Received referral from [facility] Manufacturing Lab Technician (Marielos Watson) on 02/13/2022. Patient is to discharge with orders for home health and elected [facility]. Met with patient to further discuss the above. Patient is agreeable to the above. Discussed homebound status definition with patient. Patient verbalized understanding. Discussed what home health is vs what it is not (in home caregivers/housekeeping). Patient verbalized understanding. Discussed the next steps in the process of an initial assessment to determine frequency of visits. Again patient verbalized understanding. Offered a chance for patient to ask questions regarding the above of which there were none. Gathered all supporting documentation for referral (face sheet, face to face, med list, H&P, and most recent PT assessment) and sent to [facility] for review. No further interventions required. Celeste Barney Referral Liaison
--- NOTE | 2022-02-14 12:23 | NUR ---
DISCHARGE NOTE PT REMAINED ALERT AND ORIENTED X 4 T/O SHIFT. SPO2 MAINTAINED >95% VIA ROOM AIR, NO PAIN, NAUSEA, CHEST PAIN REPORTED. PT REPORTED THAT BILATERAL LEG SWELLING WAS MUCH IMPROVED, SKIN RED AND BLANCHABLE. PATIENTS DAUGHTER IN LAW WAS AT BEDSIDE UPON DISCHARGE, LAWNMOWER REPAIR MECHANIC PROVIDED HOME HEATLH INSTRUCTION. THIS NURSE PROVIDED DISCHARGE INSTRUCTIONS INCLUDING FOLLOW UP APPOINTMENTS, MEDICATION EDUCATION, FALL/SAFETY EDUCATION. JACOB CATHETER TAKEN OUT BY THIS NURSE AT 1100. PT LEFT BEHIND SHANNAN BOOTS, SON WILL BE BY AT 1830 TO CASTING ROOM OPERATOR, OTHERWISE ALL OF PERSONAL BELONGINGS WENT HOME WITH PATIENT. PATIENT LEFT PCU VIA WHEELCHAIR AT 1130 ESCORTED BY TANIKA RAMIREZ.
== END 2022-02-14 11:31 | disposition home or self-care (01) | DRG 150 ==
LOC: ER 23:36 → PCU 23:37 → ER 02-11 04:28 → PCU 02-11 04:28
PROVIDERS: Emergency Medicine; Family Medicine; Hospitalist; Student in an Organized Health Care Education/Training Program; ADMIT Internal Medicine
PROC: 30233K1 Transfusion of Nonautologous Frozen Plasma into Peripheral Vein, Percutaneous Approach (ICD-10-PCS; principal; 2022-02-12)
PROC: 093K7ZZ Control Bleeding in Nasal Mucosa and Soft Tissue, Via Natural or Artificial Opening (ICD-10-PCS; 2022-02-12)
DX: R04.0 Epistaxis (principal); N17.0 Acute kidney failure with tubular necrosis; D68.32 Hemorrhagic disorder due to extrinsic circulating anticoagulants; E87.1 Hypo-osmolality and hyponatremia; L03.115 Cellulitis of right lower limb; I48.19 Other persistent atrial fibrillation; I13.0 Hypertensive heart and chronic kidney disease with heart failure and stage 1 through stage 4 chronic kidney disease, or unspecified chronic kidney disease; N25.81 Secondary hyperparathyroidism of renal origin; N18.4 Chronic kidney disease, stage 4 (severe); L89.619 Pressure ulcer of right heel, unspecified stage; E79.0 Hyperuricemia without signs of inflammatory arthritis and tophaceous disease; I50.9 Heart failure, unspecified; T45.515A Adverse effect of anticoagulants, initial encounter; E03.9 Hypothyroidism, unspecified; E78.5 Hyperlipidemia, unspecified; E66.01 Morbid (severe) obesity due to excess calories; I95.9 Hypotension, unspecified; E87.6 Hypokalemia; E88.09 Other disorders of plasma-protein metabolism, not elsewhere classified; D63.1 Anemia in chronic kidney disease; E11.22 Type 2 diabetes mellitus with diabetic chronic kidney disease; E87.70 Fluid overload, unspecified; K21.9 Gastro-esophageal reflux disease without esophagitis; Z88.9 Allergy status to unspecified drugs, medicaments and biological substances; Z91.013 Allergy to seafood; Z79.01 Long term (current) use of anticoagulants; Z79.890 Hormone replacement therapy; Z79.84 Long term (current) use of oral hypoglycemic drugs; Z79.899 Other long term (current) drug therapy; Z98.890 Other specified postprocedural states
CPT/HCPCS: 30901; 36415; 36430; 51702; 71045; 76770; 80053; 80069; 80162; 81003; 82248; 82550; 82947; 83735; 83880; 84100; 84443; 84484; 84550; 85014; 85018; 85025; 85610; 86900; 86901; 93005; 93010; 96365; 96375; 96376; 97110; 97116; 97162; 97166; 97530; 97535; 99284-25; A9270; G0378; J0690; J1160; J3430; J7030; J7050; P9059

== ENCOUNTER 2022-03-01 11:11 | Emergency (ER) | payer OTHER ==
[~2022-03-01] VITALS: Ht 167.6 cm; Wt 129.3 kg
[~2022-03-01 11:11] MED LIST changes: +CEPH500 PO; +KLOR-CON 1010 ME6 PO; +NYSTATIN15 GM TOP
[2022-03-01 11:52] LABS: BASOPHILS ABSOLUTE AUTO 0.04 K/mm3 (0.00-0.23); BASOPHILS PERCENT AUTO 1 % (0-2); EOSINOPHILS ABSOLUTE AUTO 0.06 K/mm3 (0.00-0.68); EOSINOPHILS PERCENT AUTO 1 % (0-6); Hematocrit 35.4 % (33.0-51.0); Hemoglobin 11.3 g/dL (11.5-16.0); IMMATURE GRAN ABSOLUTE AUTO 0.03 K/mm3 (0.00-0.10); IMMATURE GRAN PERCENT AUTO 1 % (0-1); LYMPHOCYTES ABSOLUTE AUTO 0.92 K/mm3 (0.84-5.20); LYMPHOCYTES PERCENT AUTO 19 % (21-46); MONOCYTES ABSOLUTE AUTO 0.44 K/mm3 (0.16-1.47); MONOCYTES PERCENT AUTO 9 % (4-13); Mean Corpuscular HGB 28.9 pg (26.0-34.0); Mean Corpuscular HGB Conc 31.9 g/dL (31.5-36.5); Mean Corpuscular Volume 91 fL (80-100); Mean Platelet Volume 9.6 fL (9.1-12.4); NEUTROPHILS ABSOLUTE AUTO 3.38 K/mm3 (1.96-9.15); NEUTROPHILS PERCENT AUTO 70 % (41-73); Platelet Count 373 K/mm3 (150-400); RDW Coefficient Variation 19.4 % (11.7-14.2); RDW Standard Deviation 63.7 fL (35.1-46.3); Red Blood Cell Count 3.91 M/mm3 (3.80-5.20); White Blood Cell Count 4.87 K/mm3 (4.00-11.30)
[2022-03-01 12:17] LABS: Albumin/Globulin Ratio 0.8 (0.8-1.8); Bilirubin, Total 1.2 mg/dL (0.1-1.0); Bun/Creatinine Ratio 31.1 (12.0-20.0); Creatinine, Blood 1.64 mg/dL (0.40-1.00); Potassium, Blood 4.2 mmol/L (3.5-5.5)
[2022-03-01] MEDS ORDERED: DILT60 PO (14:45)
== END 2022-03-01 16:06 | disposition home or self-care (01) ==
LOC: ER 11:11
PROVIDERS: Physician Assistant
DX: I48.91 Unspecified atrial fibrillation (principal); J90 Pleural effusion, not elsewhere classified; R60.0 Localized edema; E11.9 Type 2 diabetes mellitus without complications; E03.9 Hypothyroidism, unspecified; I10 Essential (primary) hypertension; Z79.899 Other long term (current) drug therapy
CPT/HCPCS: 36415; 71045; 80053; 83735; 83880; 84484; 85025; 93005; 93010; 96374; 96375; 99285-25; A9270; J1940; J7030

== ENCOUNTER → 2022-05-18 | Outpatient (CLI) | payer OTHER ==
[~2022-05-18] MED LIST changes: +DILT60 PO
[2022-05-18 11:00] LABS: Adenovirus F 40/41 Not Detected (NOT DETECT); Astrovirus Not Detected (NOT DETECT); Campylobacter Sp Not Detected (NOT DETECT); Cryptosporidium Not Detected (NOT DETECT); Cyclospora Cayetanensis Not Detected (NOT DETECT); E. Coli O157 Not Detected (NOT DETECT); Entamoeba Histolytica Not Detected (NOT DETECT); Enteroaggregative E. coli-EAEC Not Detected (NOT DETECT); Enteropathogenic E. coli-EPEC Not Detected (NOT DETECT); Enterotoxigenic E. coli-ETEC Not Detected (NOT DETECT); Giardia Lamblia Not Detected (NOT DETECT); Norovirus GI/GII Not Detected (NOT DETECT); Plesiomonas Shigelloides Not Detected (NOT DETECT); Rotavirus A Not Detected (NOT DETECT); Salmonella Sp Not Detected (NOT DETECT); Sapovirus Not Detected (NOT DETECT); Shiga Toxin-prod E. coli-STEC Not Detected (NOT DETECT); Shigella/Enteroin E. coli-EIEC Not Detected (NOT DETECT); Vibrio Cholerae Not Detected (NOT DETECT); Vibrio Sp Not Detected (NOT DETECT); Yersinia Enterocolitica Not Detected (NOT DETECT)
== END | disposition home or self-care (01) ==
LOC: LAB SHORT 08:49 → LAB 08:49
PROVIDERS: Physician Assistant
DX: A06.1 Chronic intestinal amebiasis (principal); R19.7 Diarrhea, unspecified
CPT/HCPCS: 87507

== ENCOUNTER → 2022-06-06 | Outpatient (CLI) | payer OTHER ==
[2022-06-06 14:42] LABS: Source, Urine Clean Catch
[2022-06-06 15:25] LABS: BASOPHILS ABSOLUTE AUTO 0.04 K/mm3 (0.00-0.23); BASOPHILS PERCENT AUTO 1 % (0-2); EOSINOPHILS ABSOLUTE AUTO 0.05 K/mm3 (0.00-0.68); EOSINOPHILS PERCENT AUTO 1 % (0-6); Hematocrit 33.6 % (33.0-51.0); Hemoglobin 10.9 g/dL (11.5-16.0); IMMATURE GRAN ABSOLUTE AUTO 0.02 K/mm3 (0.00-0.10); IMMATURE GRAN PERCENT AUTO 0 % (0-1); LYMPHOCYTES ABSOLUTE AUTO 1.16 K/mm3 (0.84-5.20); LYMPHOCYTES PERCENT AUTO 24 % (21-46); MONOCYTES ABSOLUTE AUTO 0.45 K/mm3 (0.16-1.47); MONOCYTES PERCENT AUTO 9 % (4-13); Mean Corpuscular HGB 29.1 pg (26.0-34.0); Mean Corpuscular HGB Conc 32.4 g/dL (31.5-36.5); Mean Corpuscular Volume 90 fL (80-100); Mean Platelet Volume 9.6 fL (9.1-12.4); NEUTROPHILS ABSOLUTE AUTO 3.15 K/mm3 (1.96-9.15); NEUTROPHILS PERCENT AUTO 65 % (41-73); Platelet Count 335 K/mm3 (150-400); RDW Coefficient Variation 14.6 % (11.7-14.2); RDW Standard Deviation 47.7 fL (35.1-46.3); Red Blood Cell Count 3.74 M/mm3 (3.80-5.20); White Blood Cell Count 4.87 K/mm3 (4.00-11.30)
[2022-06-06 15:31] LABS: Albumin, Blood 3.3 g/dL (3.4-5.0); Albumin/Globulin Ratio 0.8 (0.8-1.8); Bilirubin, Total 0.4 mg/dL (0.1-1.0); Bun/Creatinine Ratio 29.7 (12.0-20.0); Calcium, Blood 9.1 mg/dL (8.5-10.1); Creatinine, Blood 2.22 mg/dL (0.40-1.00); Globulin, Blood 3.9 g/dL (2.2-4.0); Potassium, Blood 3.6 mmol/L (3.5-5.5); Total Protein, Blood 7.2 g/dL (6.4-8.2)
[2022-06-06 15:32] LABS: Bilirubin, Urine Neg (Neg); Blood, Urine Neg (Neg); Glucose Qualitative, Urine Neg (Neg); Ketones, Urine Neg (Neg); Leukocyte Esterase, Urine 3+ (Neg); Nitrite, Urine Neg (Neg); Protein, Urine Neg (Neg); Specific Gravity, Urine 1.015 (1.003-1.022); Urobilinogen, Urine NORM (Normal)
[2022-06-06 18:15] LABS: Appearance, Urine Hazy (Clear); Color, Urine Pale Yellow (P-Yellow)
[2022-06-06 18:16] LABS: Amorphous Light (0-Heavy); Bacteria Mod /hpf; Hyaline Casts 0-2 /lpf (0-2); Mucus Light (0-Heavy); Red Blood Cells, Urine 0-2 /hpf (0-2); Squamous Epithelial Cells Rare /hpf (Few)
== END | disposition home or self-care (01) ==
LOC: LAB 13:50 → LAB SHORT 13:50
PROVIDERS: Physician Assistant
DX: I50.30 Unspecified diastolic (congestive) heart failure (principal); R53.83 Other fatigue; R29.6 Repeated falls
CPT/HCPCS: 80053; 81001; 85025; 87086

== ENCOUNTER → 2022-07-03 | Outpatient (CLI) | payer OTHER ==
[2022-07-03 18:04] LABS: Magnesium, Blood 1.9 mg/dL (1.6-2.4)
[2022-07-03 18:20] LABS: Albumin, Blood 3.4 g/dL (3.4-5.0); Anion Gap 9 mmol/L (6-16); Blood Urea Nitrogen 52 mg/dL (8-24); Bun/Creatinine Ratio 23.4 (12.0-20.0); CO2, Blood 36 mmol/L (21-32); Calcium, Blood 9.3 mg/dL (8.5-10.1); Chloride, Blood 86 mmol/L (98-108); Creatinine, Blood 2.22 mg/dL (0.40-1.00); Glomerular Filtration Rate 21 (60-); Glucose, Blood 114 mg/dL (70-99); Phosphorus, Blood 2.9 mg/dL (2.5-4.9); Potassium, Blood 2.4 mmol/L (3.5-5.5); Sodium, Blood 131 mmol/L (136-145)
== END | disposition home or self-care (01) ==
LOC: LAB SHORT 16:50 → LAB 16:50
PROVIDERS: Internal Medicine Nephrology
DX: N18.2 Chronic kidney disease, stage 2 (mild) (principal); D63.1 Anemia in chronic kidney disease
CPT/HCPCS: 80069; 83735; 85018

== ENCOUNTER → 2022-07-10 | Outpatient (CLI) | payer OTHER ==
[2022-07-10 20:16] LABS: Albumin, Blood 3.4 g/dL (3.4-5.0); Anion Gap 14 mmol/L (6-16); Blood Urea Nitrogen 60 mg/dL (8-24); Bun/Creatinine Ratio 23.8 (12.0-20.0); CO2, Blood 28 mmol/L (21-32); Calcium, Blood 9.2 mg/dL (8.5-10.1); Chloride, Blood 87 mmol/L (98-108); Creatinine, Blood 2.52 mg/dL (0.40-1.00); Glomerular Filtration Rate 18 (60-); Glucose, Blood 119 mg/dL (70-99); Phosphorus, Blood 4.4 mg/dL (2.5-4.9); Potassium, Blood 2.9 mmol/L (3.5-5.5); Sodium, Blood 129 mmol/L (136-145)
== END | disposition home or self-care (01) ==
LOC: LAB SHORT 16:10
PROVIDERS: Internal Medicine Nephrology
DX: N18.2 Chronic kidney disease, stage 2 (mild) (principal); D63.1 Anemia in chronic kidney disease
CPT/HCPCS: 80069; 85018

== ENCOUNTER → 2022-07-25 | Outpatient (CLI) | payer OTHER | END | disposition home or self-care (01) | LOC: LAB SHORT 10:10 → LAB 10:10 | DX: I13.0 Hypertensive heart and chronic kidney disease with heart failure and stage 1 through stage 4 chronic kidney disease, or unspecified chronic kidney disease (principal); E66.01 Morbid (severe) obesity due to excess calories | CPT/HCPCS: 84132 ==

== ENCOUNTER → 2022-08-02 | Outpatient (CLI) | payer OTHER ==
[2022-08-02 15:39] LABS: Source, Urine Clean Catch
[2022-08-02 16:42] LABS: Appearance, Urine Hazy (Clear); Bilirubin, Urine Neg (Neg); Blood, Urine Neg (Neg); Color, Urine Yellow (P-Yellow); Glucose Qualitative, Urine Neg (Neg); Ketones, Urine Neg (Neg); Leukocyte Esterase, Urine 1+ (Neg); Nitrite, Urine Neg (Neg); Protein, Urine Neg (Neg); Urobilinogen, Urine NORM (Normal)
[2022-08-02 17:06] LABS: Bacteria Many /hpf; Squamous Epithelial Cells Many /hpf (Few)
[2022-08-02 17:07] LABS: Hyaline Casts 0-2 /lpf (0-2); Transitional Epithelial Cells Few /hpf (0-Rare)
[2022-08-02 17:10] LABS: Amorphous Light (0-Heavy); Calcium Oxalate Crystals Rare /hpf
== END | disposition home or self-care (01) ==
LOC: LAB SHORT 15:38
PROVIDERS: Physician Assistant
DX: N39.0 Urinary tract infection, site not specified (principal); R53.83 Other fatigue
CPT/HCPCS: 81001; 87086